=== PATIENT | female | born 1995 | race Caucasian/White ===

== ENCOUNTER 2025-01-26 12:00 | Emergency (ER) | payer OTHER, SELFPAY ==
[2025-01-26 12:17] VITALS: BP 134/81; PULSE 83; RESP 16; TEMP 36.7; O2SAT 100
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
== END 2025-01-26 12:58 | disposition short-term general hospital (02) ==
DX: M54.2 Cervicalgia (principal); S09.90XA Unspecified injury of head, initial encounter; V89.2XXA Person injured in unspecified motor-vehicle accident, traffic, initial encounter; M54.50 Low back pain, unspecified
CPT/HCPCS: 99212; G0463; L0140

== ENCOUNTER 2025-01-26 13:15 | Emergency (ER) | payer OTHER, SELFPAY ==
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
[2025-01-26 13:27] VITALS: BP 130/86; PULSE 78; RESP 18; TEMP 36.2; O2SAT 100
[2025-01-26 14:10] VITALS: BP 148/74; PULSE 83; RESP 18; TEMP 36.7; O2SAT 100
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
[2025-01-26 14:53] LABS: BEDSIDEPREGUCG Negative (Negative)
== END 2025-01-26 16:08 | disposition home or self-care (01) ==
PROVIDERS: Emergency Provider Physician Assistant
DX: S16.1XXA Strain of muscle, fascia and tendon at neck level, initial encounter (principal); S39.012A Strain of muscle, fascia and tendon of lower back, initial encounter; K76.0 Fatty (change of) liver, not elsewhere classified; V49.50XA Passenger injured in collision with unspecified motor vehicles in traffic accident, initial encounter
CPT/HCPCS: 70450; 71250; 72125; 74176; 81025; 99284